=== PATIENT | female | born 1995 | race Caucasian/White ===

== ENCOUNTER 2024-12-21 17:05 | Emergency (ER) | payer OTHER ==
[2024-12-21] MEDS ORDERED: Lidocaine/EPINEPHrine/Tetracaine Topical Gel 3 ML SYRINGE TOP ONE (18:00)
[2024-12-21 18:34] VITALS: BP 112/79
== END 2024-12-21 18:34 | disposition home or self-care (01) ==
LOC: ED 17:05
DX: S02.5XXA Fracture of tooth (traumatic), initial encounter for closed fracture (principal); S00.511A Abrasion of lip, initial encounter; S60.511A Abrasion of right hand, initial encounter; V29.91XA Electric (assisted) bicycle rider (driver) (passenger) injured in unspecified traffic accident, initial encounter; Y93.55 Activity, bike riding; Y92.410 Unspecified street and highway as the place of occurrence of the external cause